=== PATIENT | female | born 1965 | race African-American/Black ===

== ENCOUNTER 2023-09-12 18:35 | Emergency (ER) | payer SELFPAY ==
[~2023-09-12] VITALS: Ht 167.6 cm; Wt 91.0 kg
[2023-09-12 18:45] VITALS: BP 126/81; PULSE 119; RESP 18; TEMP 98.1; O2SAT 99
[2023-09-12] MEDS: IBUPROFEN 600MG TABLET PO ONE (20:26)
[2023-09-12] MEDS: LIDOCAINE HCL/PF 1% 10 MG/ML 5ML VIAL INFIL ONE (21:31)
[2023-09-12] MEDS: BACITRACIN ZINC OINT UDPKT TOP ONE (21:32)
== END 2023-09-12 22:11 | disposition home or self-care (01) ==
LOC: ER 18:35
DX: S81.812A Laceration without foreign body, left lower leg, initial encounter (principal); Z98.890 Other specified postprocedural states; Z94.0 Kidney transplant status; X58.XXXA Exposure to other specified factors, initial encounter; Y93.89 Activity, other specified; Y92.89 Other specified places as the place of occurrence of the external cause; Y99.8 Other external cause status
CPT/HCPCS: 12002; 99282; J3490; Z7610 ×3